=== PATIENT | female | born 1985 | race Caucasian/White ===

== ENCOUNTER 2018-08-26 11:41 | Emergency (ER) | payer MEDICAID ==
[~2018-08-26] VITALS: Ht 160 cm; Wt 110.7 kg
[2018-08-26 11:45] VITALS: BP 146/90
--- NOTE | 2018-08-26 11:52 | NUR ---
PT AMB TO ER BED 6
--- NOTE | 2018-08-26 12:01 | NUR ---
PT C/O RIGHT EARACHE FOR 5 DAYS, PT USE Q-TIPS FOUND SOME BLACK-YELLOWISH DRANIAGE. PT FELT DIZZY, VERTIGIOUS, CONFUSED, NAUSEAOUS, AND LOSS OF JEREMÍAS IN RIGHT EAR. DENIES VOMITING AND DIARRHEA AT THIS TIME. THROBBING EARACHE, 09/14. PT DENIES ANY FEVER, CP, SOB, OR COUGH AT THIS TIME; VSS; ERYTHEMA AND YELLOWISH DRANIAGE SEEN IN RIGHT EXTENAL EAR CANNAL. PATIENT POSITIONED FOR COMFORT; HOB ELEVATED; BEDRAILS UP X1; BED DOWN. ER MD MADE AWARE OF PT STATUS.
[2018-08-26 12:17] VITALS: BP 138/97
--- NOTE | 2018-08-26 12:17 | NUR ---
Patient discharged with v/s stable. Written and verbal after care instructions given and explained. Patient alert, oriented and verbalized understanding of instructions. Ambulatory with steady gait. All questions addressed prior to discharge. ID band removed. Patient advised to follow up with PMD. Rx of CORTISPORIN OTIC given. Patient educated on indication of medication including possible reaction and side effects. Opportunity to ask questions provided and answered.
== END 2018-08-26 12:17 | disposition home or self-care (01) ==
LOC: MED 11:41
DX: H60.91 Unspecified otitis externa, right ear (principal); R42 Dizziness and giddiness
CPT/HCPCS: 99283

== ENCOUNTER 2021-10-26 11:50 | Emergency (ER) | payer MEDICAID ==
[~2021-10-26] VITALS: Ht 162.6 cm; Wt 122.5 kg
[2021-10-26 12:01] VITALS: BP 127/76
--- NOTE | 2021-10-26 12:13 | NUR ---
Pt ambulated to bed 05.
--- NOTE | 2021-10-26 12:45 | NUR ---
DR HARDING AT BEDSIDE EVALUATING PT
[2021-10-26] MEDS ORDERED: LORA-476 PO (12:48)
--- NOTE | 2021-10-26 13:11 | NUR ---
Patient discharged with v/s stable. Written and verbal after care instructions ABOUT STRESS given and explained. Patient alert, oriented and verbalized understanding of instructions. Ambulatory with steady gait. All questions addressed prior to discharge. ID band removed. Patient advised to follow up with PMD. Rx of ATIVAN given. Patient educated on indication of medication including possible reaction and side effects. Opportunity to ask questions provided and answered.
== END 2021-10-26 13:11 | disposition home or self-care (01) ==
LOC: MED 11:50
DX: F29 Unspecified psychosis not due to a substance or known physiological condition (principal)
CPT/HCPCS: 99283

== ENCOUNTER 2021-11-25 03:30 | Emergency (ER) | payer MEDICAID ==
[~2021-11-25] VITALS: Ht 160 cm; Wt 124.3 kg
[~2021-11-25 03:30] MED LIST: LORA-476 PO
[2021-11-25 04:00] VITALS: BP 140/72
--- NOTE | 2021-11-25 04:10 | NUR ---
ASSUMED CARE OF PT AT THIS TIME. PT IN POSITION OF COMFORT. AWAITING PROVIDER EXAM.
--- NOTE | 2021-11-25 04:10 | NUR ---
PT TAKEN TO BED 4
--- NOTE | 2021-11-25 05:00 | NUR ---
AWAITING RESULTS. PT AWARE. PT IN POSITION OF COMFORT. WILL CONTINUE TO MONITOR.
[2021-11-25] MEDS ORDERED: IBUPROFEN 800 MG TAB PO ONE (05:10)
[2021-11-25 05:12] LABS: BASOPHILS # (AUTO) 0.1 K/uL (0.00-0.22); BASOPHILS % (AUTO) 0.9 % (0.0-2.0); EOSINOPHILS # (AUTO) 0.8 K/uL (0-0.4); EOSINOPHILS % (AUTO) 8.3 % (0.0-4.0); HEMATOCRIT 35.8 % (36-48); HEMOGLOBIN 11.9 g/dL (12.0-16.0); LYMPHOCYTES # (AUTO) 2.2 K/uL (2.5-16.5); LYMPHOCYTES % (AUTO) 24.2 % (20.5-51.1); MEAN CORPUSCULAR HEMOGLOBIN 27 pg (27-31); MEAN CORPUSCULAR HGB CONC 33 g/dL (33-37); MEAN CORPUSCULAR VOLUME 82.8 fL (80-94); MONOCYTES # (AUTO) 1.1 K/uL (0.8-1.0); MONOCYTES % (AUTO) 12.4 % (1.7-9.3); NEUTROPHILS # (AUTO) 4.9 K/uL (1.8-7.7); NEUTROPHILS % (AUTO) 54.2 % (42.2-75.2); PLATELET COUNT (AUTO) 406 K/uL (140-450); RED BLOOD CELL COUNT(AUTO) 4.33 MIL/uL (4.20-5.40); RED CELL DISTRIBUTION WIDTH 14.9 % (11.6-13.7); WHITE BLOOD COUNT (AUTO) 9.1 K/uL (4.8-10.8)
[2021-11-25 05:21] LABS: APPEARANCE,URINE CLEAR (CLEAR); BILIRUBIN,URINE NEGATIVE (NEGATIVE); BLOOD, URINE TRACE-I (NEGATIVE); COLOR,URINE YELLOW (YELLOW); LEUKOCYTE ESTERASE ,URINE NEGATIVE (NEGATIVE); NITRITE, URINE NEGATIVE (NEGATIVE); UGLUCOSE NEGATIVE (NEGATIVE)
[2021-11-25 05:24] LABS: RBC,URINE 0-5 /HPF (0-5); WBC,URINE 0-5 /HPF (0-5)
[2021-11-25 05:27] LABS: ANION GAP 11.1 (8-16); CARBON DIOXIDE 27.4 mmol/L (21-32); CREATININE 0.7 mg/dL (0.6-1.3); POTASSIUM 3.5 mmol/L (3.5-5.1); TOTAL BILIRUBIN 0.2 mg/dL (0.0-1.0)
[2021-11-25] MEDS ORDERED: cephALEXin 500 MG CAP PO ONE (05:30)
--- NOTE | 2021-11-25 06:00 | NUR ---
PT RESTING. DENIES ANY PAIN OR NEEDS AT THIS TIME. AWAITING RESULTS. WILL CONTINUE TO MONITOR.
[2021-11-25] MEDS ORDERED: IBUPROFEN 800 MG TAB ONE (06:34)
[2021-11-25] MEDS ORDERED: cephALEXin 500 MG CAP ONE (06:34)
[2021-11-25] MEDS ORDERED: CEPH-588 PO (06:38)
[2021-11-25] MEDS ORDERED: ACET-10509 PO (06:50)
[2021-11-25] MEDS ORDERED: IBUP-1842 PO (06:50)
--- NOTE | 2021-11-25 07:13 | NUR ---
REPORT TO RACQUEL CARRERO WITH FULL RETURNED VERBAL UNDERSTANDING.
[2021-11-25 07:30] VITALS: BP 121/75
--- NOTE | 2021-11-25 07:32 | NUR ---
Patient discharged with v/s stable. Written and verbal after care instructions given and explained. Patient alert, oriented and verbalized understanding of instructions. Ambulatory with steady gait. All questions addressed prior to discharge. ID band removed. Patient advised to follow up with PMD. Rx of KFLEX AND IBUPROFEN given. Patient educated on indication of medication including possible reaction and side effects. Opportunity to ask questions provided and answered. CD COPY GIVEN TO PT WELL.
== END 2021-11-25 07:32 | disposition home or self-care (01) ==
LOC: MED 03:30
DX: N39.0 Urinary tract infection, site not specified (principal); Z79.899 Other long term (current) drug therapy
CPT/HCPCS: 36415; 74177; 80053; 81001; 81025; 85025; 87086; 99285; Q9967